=== PATIENT | female | born 1965 | race Caucasian/White ===

== ENCOUNTER 2016-07-15 17:07 | Emergency (ER) | payer OTHER | END 2016-07-15 18:53 | disposition home or self-care (01) | LOC: ER1 17:07 | DX: L72.9 Follicular cyst of the skin and subcutaneous tissue, unspecified (principal); I10 Essential (primary) hypertension | CPT/HCPCS: 81001; 99283; Q9962 ==

== ENCOUNTER → 2020-05-05 | Outpatient (CLI) | payer OTHER ==
[~2020-05-05] MED LIST: COLACE 100MG C100 MG PO; LISINOPRIL-HCT1 EAC2 PO; NORCO 5-325 TA1 EACH PO; NORCO 7.5-3251 EACH PO; RISPERDAL2 MG PO; VENTOLIN HFA 66.7 GM INH; VISTARIL 50 MG50 MG PO; VOLTAREN EC 7575 MG PO
[2020-05-05 15:13] LABS: HEMOGLOBIN 13.9 gm/dl (12.3-15.3); RED BLOOD COUNT 4.58 M/UL (4.00-5.10); WHITE BLOOD COUNT 8.4 K/UL (4.5-11.0)
[2020-05-05 15:31] LABS: BUN/CREATININE RATIO 14 (0-10)
== END ==
LOC: LAB 13:53
PROVIDERS: Orthopaedic Surgery
DX: Z01.818 Encounter for other preprocedural examination (principal)
CPT/HCPCS: 36415; 71046; 80053; 85025

== ENCOUNTER → 2021-11-17 | Outpatient (CLI) | payer OTHER ==
[2021-11-17 12:56] LABS: HEMOGLOBIN 14.2 gm/dl (12.3-15.3); RED BLOOD COUNT 4.79 M/UL (4.00-5.10); WHITE BLOOD COUNT 8.4 K/UL (4.5-11.0)
[2021-11-17 13:33] LABS: BUN/CREATININE RATIO 11 (0-10)
== END ==
LOC: LAB 12:10
PROVIDERS: Orthopaedic Surgery
DX: Z01.812 Encounter for preprocedural laboratory examination (principal)
CPT/HCPCS: 36415; 80053; 85025